=== PATIENT | female | born 1940 | race Caucasian/White ===

== ENCOUNTER 2024-05-10 13:12 | Outpatient (CLI) | payer MEDICARE, OTHER, SELFPAY ==
[2024-05-10 13:31] VITALS: BP 124/63; PULSE 86; RESP 20; TEMP 36.7; O2SAT 96
--- NOTE | 2024-05-10 14:10 | DI.RAD_ITS ---
Exam(s) XR PAIN CLINIC LUMBAR SP 2V EXAM: XR PAIN CLINIC LUMBAR SP 2V CLINICAL HISTORY: Dx: Lumbar Spondylosis TECHNIQUE: 2D and realtime digital imaging was performed. Radiologist not present. CONTRAST MATERIAL: None. COMPARISON: No exams were available for comparison FINDINGS: Fluoroscopy was provided for pain management therapy. Please refer to procedure report or details. Radiation Exposure Index: Ka,r=10.45 mGy IMPRESSION: As above. RADIATION DOSE DELIVERED:
[2024-05-10] MEDS: Bupivacaine 0.5% Pres-Free 10 ML VIAL IJ (14:13)
[2024-05-10] MEDS: Nerve Block Tray 1 EACH MC (14:13)
[2024-05-10 14:15] VITALS: O2SAT 99
--- NOTE | 2024-05-10 14:17 | PDOC.PAIN ---
Date of service: 05/10/24 Time of Service: 14:20 Pain Managment Procedure Note Procedure Note Procedure Note: Lumbar Medial Branch Block ? Location: Bilateral Medial Branches ? Levels: L3,4,5? (L4-5, L5-S1 FACET) ? 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 Post-procedure Diagnosis:? The same as above ? Sedation: NONE? Estimated blood loss:? less than 2 cc ? Surgeon:? Eric Watson MD COMMENT: PRE PROCEDURE PAIN SCORE: 5/10 ? Procedure Detail:? The procedure and potential risks were explained to the patient and informed written consent was obtained. The patient was escorted to the procedure room and placed in the prone position. Pillows were utilized for proper positioning and comfort.? Time out was performed in procedure room with nursing staff confirming the patient's identity, procedure to be performed, allergies, and any blood thinning or anti-platelet medications. The patient's lower back was prepped with chlorhexidine and draped in a sterile fashion. Sterile technique was maintained throughout the procedure.? Sterile gloves were used, a face mask was worn, and new single dose vials of all medications were used with the top being swabbed with alcohol and given time to dry prior to withdrawal of medication.? A left AND right-sided oblique fluoroscopic view was obtained, with visualization of the: ?RIGHT and LEFT L3,4 and DORSAL RAMUS L5 AT SACRAL ALA ? junction of the transverse process and superior articular process. Lidocaine 1% was used to anesthetize the skin. A 22-gauge Quincke needle was advanced along the superior margin of the transverse process and lateral to the articular process.? It was directed inferiorly and medially so that the tip struck the junction of the base of the transverse process and the superior articular process. The needle was then walked over the superior aspect of the transverse process and advanced slightly along the course of the L3,4,5 medial branch nerves. Proper placement was verified in A/P, oblique and lateral views under fluoroscopy. At this location, following negative aspiration, 0.5cc 0.5% bupivacaine was injected.? The patient tolerated the procedure well and was transported to the recovery area for observation and discharge instructions. Permanent images saved and recorded. Follow-up:? The patient will return in 2 weeks for confirmatory LMBBs if they? meet the criteria from today's procedure lasting for at least 2 hours.? COMMENT: Before the patient left patient had greater than 90% pain relief.
== END 2024-05-10 13:13 | disposition home or self-care (01) ==
LOC: PC 13:14
PROVIDERS: PCP Internal Medicine; Visit Provider Anesthesiology Pain Medicine
DX: M54.50 Low back pain, unspecified (principal); M47.817 Spondylosis without myelopathy or radiculopathy, lumbosacral region; M47.816 Spondylosis without myelopathy or radiculopathy, lumbar region
CPT/HCPCS: 00123; 64493; 64494; 72100; J0665

== ENCOUNTER 2024-05-24 11:34 | Outpatient (CLI) | payer MEDICARE, OTHER, SELFPAY ==
--- NOTE | 2024-05-24 06:00 | DI.RAD_ITS ---
Exam(s) XR PAIN CLINIC LUMBAR SP 2V EXAM: XR PAIN CLINIC LUMBAR SP 2V CLINICAL HISTORY: Dx: Lumbar Spondylosis TECHNIQUE: 2D and realtime digital imaging was performed. Radiologist not present. CONTRAST MATERIAL: None. COMPARISON: No exams were available for comparison FINDINGS: Fluoroscopy was provided for pain management therapy. Please refer to procedure report or details. Radiation Exposure Index: Ka,r=11.96 mGy IMPRESSION: As above. RADIATION DOSE DELIVERED:
[2024-05-24 12:08] VITALS: BP 134/56; PULSE 65; RESP 20; TEMP 36.6; O2SAT 97
--- NOTE | 2024-05-24 12:32 | PDOC.PAIN ---
Date of service: 05/24/24 Time of Service: 12:54 Pain Managment Procedure Note Procedure Note Procedure Note: Location: Bilateral Medial Branches ? Levels: L3,4,5? (L4-5, L5-S1 FACET) ? 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 Post-procedure Diagnosis:? The same as above ? Sedation: NONE? Estimated blood loss:? less than 2 cc ? Surgeon:? Eric Watson MD COMMENT: Patient had? GREATER THAN 80 % relief after the first medial branch block for greater than the duration of the local anesthetic.? PRE PROCEDURE PAIN SCORE: 6/10 ? Procedure Detail:? The procedure and potential risks were explained to the patient and informed written consent was obtained. The patient was escorted to the procedure room and placed in the prone position. Pillows were utilized for proper positioning and comfort.? Time out was performed in procedure room with nursing staff confirming the patient's identity, procedure to be performed, allergies, and any blood thinning or anti-platelet medications. The patient's lower back was prepped with chlorhexidine and draped in a sterile fashion. Sterile technique was maintained throughout the procedure.? Sterile gloves were used, a face mask was worn, and new single dose vials of all medications were used with the top being swabbed with alcohol and given time to dry prior to withdrawal of medication.? A left and right-sided oblique fluoroscopic view was obtained, with visualization of the: ?RIGHT and LEFT L3,4 and DORSAL RAMUS L5 AT SACRAL ALA ? junction of the transverse process and superior articular process. Lidocaine 1% was used to anesthetize the skin. A 22-gauge Quincke needle was advanced along the superior margin of the transverse process and lateral to the articular process.? It was directed inferiorly and medially so that the tip struck the junction of the base of the transverse process and the superior articular process. The needle was then walked over the superior aspect of the transverse process and advanced slightly along the course of the L3,4,5 medial branch nerves. Proper placement was verified in A/P, oblique and lateral views under fluoroscopy. At this location, following negative aspiration, 0.5cc 2% lidocaine was injected.? The patient tolerated the procedure well and was transported to the recovery area for observation and discharge instructions. Permanent images saved and recorded. Follow-up:?? Will plan to proceed with lumbar medial branch RFA if the patient gets good relief from today's procedure lasting for at least 2 hours. COMMENT: Pain went from 6/10 to 0/10. Before the patient left patient had 90% pain relief.
[2024-05-24 12:35] VITALS: PULSE 73; RESP 21; O2SAT 98
[2024-05-24 12:36] VITALS: BP 151/53; PULSE 71; PULSE 72; RESP 16; O2SAT 97
[2024-05-24 12:40] VITALS: PULSE 75; RESP 18; O2SAT 98
[2024-05-24 12:45] VITALS: BP 158/64; PULSE 72; PULSE 74; RESP 16; O2SAT 96
[2024-05-24 12:50] VITALS: BP 146/83; PULSE 74
[2024-05-24] MEDS: Lidocaine 2% Pres-Free 5 ML VIAL IJ (12:55)
[2024-05-24] MEDS: Nerve Block Tray 1 EACH MC (12:56)
== END 2024-05-24 11:35 | disposition home or self-care (01) ==
LOC: PC 11:35
PROVIDERS: PCP Internal Medicine; Visit Provider Anesthesiology Pain Medicine
DX: M54.50 Low back pain, unspecified (principal); M47.817 Spondylosis without myelopathy or radiculopathy, lumbosacral region; M47.816 Spondylosis without myelopathy or radiculopathy, lumbar region
CPT/HCPCS: 00123; 64493; 64494; 72100

== ENCOUNTER 2024-06-13 11:52 | Outpatient (CLI) | payer MEDICARE, OTHER, SELFPAY ==
[2024-06-13] VITALS (15 sets, daily range): BP systolic 134–156; BP diastolic 61–95; PULSE 70–78; RESP 12–22; TEMP 36.7; O2SAT 92–100
--- NOTE | 2024-06-13 06:00 | DI.RAD_ITS ---
Exam(s) XR PAIN CLINIC LUMBAR SP 2V EXAM: XR PAIN CLINIC LUMBAR SP 2V CLINICAL HISTORY: DX: Lumbar Spondylosis. TECHNIQUE: Fluoroscopy was provided for the referring physician for guidance with performing pain cl inic injection procedure. COMPARISON: No exams were available for comparison FINDINGS: Please see procedure note for details. Fluoro time: 62.8 seconds RADIATION DOSE DELIVERED: Devr=18.12 mGy
--- NOTE | 2024-06-13 12:56 | PDOC.PAIN ---
Date of service: 06/13/24 Time of Service: 14:19 Pain Managment Procedure Note Procedure Note Procedure Note: Lumbar Medial Branch COOLED Radiofrequency Ablation COMMENT: Patient had greater than 80 % relief after 2 medial branch blocks . ? Location: Bilateral L3, and L4 medial Branches and dorsal ramus of L5 (L4-5, and L5-S1 joints) ? 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 Post-procedure Diagnosis:? The same as above ? Sedation:? 1mg of intravenous midazolam was administered. fentanyl 25 mcg? An independent trained observer monitored the patient for the duration of the procedure.? Estimated blood loss:? less than 2 cc ? Surgeon: Eric Watson MD ? Procedure Detail:? The procedure and potential risks were explained to the patient and informed written consent was obtained. The patient was escorted to the procedure room and placed in the prone position. Pillows were utilized for proper positioning and comfort. Time out was performed in the procedure room with nursing staff confirming the patient's identity, procedure to be performed, allergies, and any blood thinning or anti-platelet medications. The patient's lower back was prepped with ChloraPrep and draped in a sterile fashion.? Sterile technique was maintained throughout the procedure.? Sterile gloves were used, a face mask was worn, and new single dose vials of all medications were used with the top being swabbed with alcohol and given time to dry prior to withdrawal of medication. A left AND right-sided oblique fluoroscopic view was obtained, with visualization of the L4 junction of the transverse process and superior articular process. 2% lidocaine was used to anesthetize the skin. With fluoroscopic guidance, an 17 gauge curved tip 4mm active tip RF cannula was advanced to the superior margin of the transverse process and lateral to the superior articular process.? It was directed inferiorly and medially so that the tip struck the junction of the base of the transverse process and the superior articular process. The needle was then slightly advanced along the course of the L3 medial branch nerve. Proper placement was verified with oblique, AP, and lateral fluoroscopic views. Sensory tested with good response less than 1V. Motor testing was performed and was negative at 2V except for expected multifidus activation. A similar procedure was also performed at the ipsilateral L4 medial branch nerves and the dorsal ramus of L5 with negative motor testing at 2V except for expected multifidus activation. One cc of 2% lidocaine was injected through each needle tip to anesthetize the medial branch nerves.? After waiting for the local anesthetic to take effect, each nerve was then ablated at 60 degrees Celsius for 150 seconds.? The patient was monitored for any severe pain or radicular pain during the ablation and reported none. The patient tolerated the procedure well, and was transported to the recovery area for observation and discharge instructions.? Permanent images were saved and recorded. PAIN: PRE PROCEDURE 6/10 POST PROCEDURE 0/10 Plan: F/U PRN COMMENT: Repeat prn if 6 months relief of 50%
[2024-06-13] MEDS: fentaNYL 100 MCG/2 ML VIAL IVP (13:04)
[2024-06-13] MEDS: Midazolam 2 MG/2 ML VIAL IVP (13:05)
[2024-06-13] MEDS: Lidocaine 2% Multi-Dose 20 ML VIAL IJ (13:45)
[2024-06-13] MEDS: Nerve Block Tray 1 EACH MC (13:47)
== END 2024-06-13 11:53 | disposition home or self-care (01) ==
LOC: PC 11:52
PROVIDERS: PCP Internal Medicine; Visit Provider Anesthesiology Pain Medicine
DX: M54.50 Low back pain, unspecified (principal); M47.817 Spondylosis without myelopathy or radiculopathy, lumbosacral region
CPT/HCPCS: 00123; 64635; 64636; 72100; J2003; J2250; J3010

== ENCOUNTER 2024-10-17 11:35 | Outpatient (CLI) | payer MEDICARE, OTHER, SELFPAY ==
--- NOTE | 2024-10-17 06:00 | DI.RAD_ITS ---
Exam(s) XR PAIN CLINIC SACRIOILIAC 2V EXAM: XR PAIN CLINIC SACRIOILIAC 2V CLINICAL HISTORY: DX: Sacroiliac Dysfunction. TECHNIQUE: Fluoroscopy was provided for the referring physician for guidance with performing pain cl inic injection procedure. COMPARISON: No exams were available for comparison FINDINGS: Please see procedure note for details. Fluoro time: 62.6 seconds RADIATION DOSE DELIVERED: Ka,r=17.8 mGy
[2024-10-17 11:54] VITALS: BP 127/72; PULSE 74; RESP 20; TEMP 36.6; O2SAT 94
--- NOTE | 2024-10-17 12:09 | PDOC.PAIN ---
Date of service: 10/17/24 Time of Service: 12:56 Pain Managment Procedure Note Procedure Note Procedure Note: ?Sacroiliac Joint Steroid Injection ? Location: Bilateral SI Joints? Pre-procedure Diagnosis: Sacroiliitis, not elsewhere classified - M46.1 ? Post-procedure Diagnosis:? The same as above ? Sedation:? NONE ? Medication: Depo-Medrol 40 mg, bupivacaine 0.5% 1 mL, Omnipaque 0.25 mL per joint ? Estimated blood loss:? less than 2 cc ? Surgeon:? Eric Watson MD ? COMMENT: THIS WILL BE BOTH DIAGNOSTIC AND THERAPEUTIC ? Procedure Detail:? The procedure and potential risks were explained to the patient and informed written consent was obtained. The patient was escorted to the procedure room and placed in the prone position. Pillows were utilized for proper positioning and comfort. Time out was performed in the procedure room with nursing staff confirming the patient's identity, procedure to be performed, allergies, and any blood thinning or anti-platelet medications. The patient's lumbosacral area was prepped with ChloraPrep and draped in a sterile fashion. Sterile technique was maintained throughout the procedure.? Sterile gloves were used, a face mask was worn, and new single dose vials of all medications were used with the top being swabbed with alcohol and given time to dry prior to withdrawal of medication. Lidocaine 1% was used to anesthetize the skin. With fluoroscopic guidance, a 22-gauge 3.5 spinal needle was advanced into the posteroinferior aspect of the Bilateral SI joint. Confirmation of position of the needle tip was obtained with injection of 0.25cc of Omnipaque 240 contrast which showed appropriate spread .? Following negative aspiration, 40mg of methylprednisolone mixed with 1 mL of bupivacaine 0.5% was injected.? The needle was gently removed. ?The patient tolerated the procedure well and was transported to the recovery area for observation and discharge instructions.? Permanent images saved and recorded. Plan:? Follow up prn. PAIN PRE PROCEDURE 04/16 POST PROCEDURE 10/17 COMMENT: [80] % BETTER AFTER INJECTION. Patient had epidural steroid injections without significant relief, radiofrequency ablation without significant relief and now SI joint injections. If she does not get significant relief I will recommend medical management.
[2024-10-17 12:54] VITALS: PULSE 72; O2SAT 94
[2024-10-17] MEDS: Nerve Block Tray 1 EACH MC (12:55)
[2024-10-17] MEDS: Omnipaque 240 MG/ML 50 ML BTL IJ (12:55)
[2024-10-17] MEDS: methylPREDNISolone ACETATE 80 MG/ML VIAL IJ (12:56)
[2024-10-17] MEDS: Bupivacaine 0.5% Pres-Free 10 ML VIAL IJ (12:56)
== END 2024-10-17 11:36 | disposition home or self-care (01) ==
LOC: PC 11:35
PROVIDERS: PCP Internal Medicine; Visit Provider Anesthesiology Pain Medicine
DX: M54.50 Low back pain, unspecified (principal); M46.1 Sacroiliitis, not elsewhere classified
CPT/HCPCS: 00123; 27096; 72200; J0665; J1010; Q9967